=== PATIENT | female | born 1995 | race American Indian/Alaskan Native ===

== ENCOUNTER 2021-01-14 11:07 | Emergency (ER) | payer SELFPAY ==
--- NOTE | 2021-01-14 11:34 | Emergency Department Report ---
- General Chief Complaint: Upper Respiratory Infection Stated Complaint: BODY PAIN ALL OVER/CHEST PAIN Time Seen by Provider: 01/14/21 11:23 Source: patient Mode of arrival: Ambulatory Limitations: No Limitations - History of Present Illness Initial Comments: Patient is a 25-year-old female presents emergency room with points of a cough that began 2 days ago. She has associated rhinorrhea, chest congestion, sore throat, generalized body aches, chills. She states occasionally she has shortness of breath after coughing spell. She denies any fever, vomiting, diarrhea, hemoptysis, leg swelling, ear pain. Past medical history of hyperlipidemia. Allergy to amoxicillin. Last menstrual cycle end of December. She states that she has not been vaccinated for COVID-19. She reports that she took a rapid COVID-19 test and states it was negative. - Related Data Previous Rx's Medication Instructions Recorded Last Taken Type Prednisone [predniSONE 5 mg (6-Day 5 mg PO .TAPER #1 tab.ds.pk 04/30/15 Unknown Rx Pack, 21 Tabs)] traMADoL [Ultram 50 MG tab] 50 mg PO Q6HR PRN #15 tablet 04/30/15 Unknown Rx Famotidine [Pepcid] 20 mg PO BID #20 tablet 12/09/19 Unknown Rx Promethazine [Phenergan] 25 mg AL Q6HR PRN #5 supp.rect 12/09/19 Unknown Rx traMADoL [Ultram] 50 mg PO Q6HR PRN #5 tablet 12/09/19 Unknown Rx Benzonatate [Tessalon Perles] 100 mg PO Q8HR PRN #12 capsule 01/14/21 Unknown Rx guaiFENesin ER [Mucinex ER] 600 mg PO Q12H #14 tablet.er 01/14/21 Unknown Rx Allergies Allergy/AdvReac Type Severity Reaction Status Date / Time amoxicillin [Amoxicillin] Allergy Unknown Verified 02/28/15 08:57 ED Review of Systems ROS: Stated complaint: BODY PAIN ALL OVER/CHEST PAIN Other details as noted in HPI Comment: All other systems reviewed and negative ED Past Medical Hx - Past Medical History Previous Medical History?: No Additional medical history: high cholesterol - Surgical History Past Surgical History?: No Additional Surgical History: cyst removed from throat - Social History Smoking Status: Current Some Day Smoker (Black and milds) Substance Use Type: None (Denies illicit drug use), Alcohol (Occasional) - Medications Home Medications: Home Medications Medication Instructions Recorded Confirmed Last Taken Type Prednisone [predniSONE 5 mg (6-Day 5 mg PO .TAPER #1 tab.ds.pk 04/30/15 Unknown Rx Pack, 21 Tabs)] traMADoL [Ultram 50 MG tab] 50 mg PO Q6HR PRN #15 tablet 04/30/15 Unknown Rx Famotidine [Pepcid] 20 mg PO BID #20 tablet 12/09/19 Unknown Rx Promethazine [Phenergan] 25 mg AL Q6HR PRN #5 supp.rect 12/09/19 Unknown Rx traMADoL [Ultram] 50 mg PO Q6HR PRN #5 tablet 12/09/19 Unknown Rx Benzonatate [Tessalon Perles] 100 mg PO Q8HR PRN #12 capsule 01/14/21 Unknown Rx guaiFENesin ER [Mucinex ER] 600 mg PO Q12H #14 tablet.er 01/14/21 Unknown Rx ED Physical Exam - General Limitations: No Limitations General appearance: alert, in no apparent distress - Head Head exam: Present: atraumatic, normocephalic - Eye Eye exam: Present: normal appearance - ENT ENT exam: Present: normal orophraynx, mucous membranes moist, normal external ear exam, other (left TM and canal is normal, right canal is normal, right TM with mild clear effusion, no erythema, no purulent effusion, no TM bulging, clear rhinorrhea) - Neck Neck exam: Present: full ROM. Absent: meningismus - Respiratory Respiratory exam: Present: normal lung sounds bilaterally. Absent: respiratory distress, wheezes, rales, rhonchi, stridor, chest wall tenderness, accessory muscle use, decreased breath sounds, prolonged expiratory - Cardiovascular Cardiovascular Exam: Present: regular rate, normal rhythm, normal heart sounds. Absent: systolic murmur, diastolic murmur, rubs, gallop - Neurological Exam Neurological exam: Present: alert, oriented X3 - Psychiatric Psychiatric exam: Present: normal affect, normal mood - Skin Skin exam: Present: warm, dry, intact ED Course Vital Signs 01/14/21 01/14/21 11:17 11:47 Temperature 99.3 F Pulse Rate 99 H 94 H Respiratory 18 16 Rate Blood Pressure 129/72 Blood Pressure 120/68 [Left] O2 Sat by Pulse 98 100 Oximetry ED Medical Decision Making - Medical Decision Making Patient is a 25-year-old female presents emergency room with points of a cough that began 2 days ago. She has associated rhinorrhea, chest congestion, sore throat, generalized body aches, chills. She states occasionally she has shortness of breath after coughing spell. She denies any fever, vomiting, diarrhea, hemoptysis, leg swelling, ear pain. Past medical history of hyperlipidemia. Allergy to amoxicillin. Last menstrual cycle end of December. She states that she has not been vaccinated for COVID-19. She reports that she took a rapid COVID-19 test and states it was negative. Vitals are normal. Patient is afebrile, no hypoxia. On exam:left TM and canal is normal, right canal is normal, right TM with mild clear effusion, no erythema, no purulent effusion, no TM bulging, clear rhinorrhea, breath sounds are clear bilaterally, no wheezing, no rales, no rhonchi. Ear examination presents distant with serous otitis but no signs of bacterial otitis media. Patient has no clinical signs of bacterial pneumonia or bacterial bronchitis. Symptoms and examination likely consistent with URI. Patient given prescriptions for symptomatic relief. Discussed supportive care and symptomatic treatment with patient and the impo rtance of oral hydration. Advised patient Please take medication as prescribed. Increase your fluid intake. Follow-up with a primary care doctor for reexamination in the next 2 to 3 days. Return to emergency room immediately for any new or worsening symptoms. Critical care attestation.: If time is entered above; I have spent that time in minutes in the direct care of this critically ill patient, excluding procedure time. ED Disposition Clinical Impression: Upper respiratory infection Qualifiers: URI type: unspecified URI Qualified Code(s): J06.9 - Acute upper respiratory infection, unspecified Serous otitis media Qualifiers: Chronicity: acute Laterality: right Recurrence: non-recurrent Qualified Code(s): H65.01 - Acute serous otitis media, right ear Disposition: 01 HOME / SELF CARE / HOMELESS Is pt being admited?: No Does the pt Need Aspirin: No Condition: Stable Instructions: Viral Respiratory Infection Additional Instructions: Please take medication as prescribed. Increase your fluid intake. Follow-up with a primary care doctor for reexamination in the next 2 to 3 days. Return to emergency room immediately for any new or worsening symptoms. Prescriptions: guaiFENesin ER [Mucinex ER] 600 mg PO Q12H #14 tablet.er Benzonatate [Tessalon Perles] 100 mg PO Q8HR PRN #12 capsule PRN Reason: cough Referrals: JOSE J COLLINS MD [Staff Physician] - 2-3 Days [facility] [Provider Group] - 2-3 Days Time of Disposition: 11:32 Print Language: SYRIAN
[2021-01-14 11:49] VITALS: BP 120/68
== END 2021-01-14 11:47 | disposition home or self-care (01) ==
LOC: ED 11:07
DX: J06.9 Acute upper respiratory infection, unspecified (principal); H65.91 Unspecified nonsuppurative otitis media, right ear; E78.00 Pure hypercholesterolemia, unspecified; Z98.890 Other specified postprocedural states; F17.290 Nicotine dependence, other tobacco product, uncomplicated; Z88.0 Allergy status to penicillin
CPT/HCPCS: 99282